=== PATIENT | male | born 1945 | race Caucasian/White ===

== ENCOUNTER → 2019-11-02 09:14 | Outpatient (CLI) | payer SELFPAY ==
--- NOTE | 2019-11-02 08:29 | PET_ITS ---
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 COMPARISON EXAMINATION: None available INDEX LESION SIZE SUV INTERPRETATION Midline nares 19.3-mm (frame 353) 3.8 Fulfills quantitative criteria for viable neoplasm NON-INDEX LESION SIZE SUV INTERPRETATION Left maxillary sinus 29.2-mm 6.8 Most consistent with activated leukocytes associated with an inflammatory process-sinusitis TECHNIQUE: Following the intravenous administration of 19.1 mCi of F-18 deoxyglucose via the left antecubital fossa, multiplanar image acquisitions of the neck, chest, abdomen and pelvis to level of mid thigh, obtained at one hour post radiopharmaceutical administration contemporaneously interpreted with the current CT of the neck, chest, abdomen and pelvis, to level of mid thigh, dated 11/02/2019 via coregistration reveals: BLOOD GLUCOSE LEVEL:?? 88 mg/dl?HEIGHT:?68 inches?WEIGHT: 239 lbs. FINDINGS: 1. There is an increase in radiopharmaceutical concentration identified in the midline distal nares. The calculated maximal standard uptake value is 3.8. The maximal axial diameter of the corresponding metabolic abnormality on review of CT of the head dated 11/02/2019 is 19.3-mm (transverse). 2. Asymmetric increased radiopharmaceutical concentration is observed in the left maxillary sinus corresponding to asymmetric opacification on review of CT of the head and neck dated 11/02/2019. The calculated maximal standard uptake value is 6.8. The maximal axial diameter of the corresponding metabolic, morphologic abnormality on review of CT of the neck dated 11/02/2019 is 29.2-mm (transverse). 3. Normal physiologic distribution of the radiopharmaceutical is apparent in the hepatic (3.0) and splenic parenchyma, both renal units, bladder and visualized intestinal tract. The visualized portion of the cerebral cortex, cerebellar hemispheres and basal ganglia demonstrates uniform and preserved glucose metabolism. Prominent radiopharmaceutical concentration is observed in the left ventricular myocardium commensurate with the [place]. (Anya and Tameka, Journal of [employer] Technology 31:3, 2003). There is an asymmetric increase in tracer concentration observed in the bilateral pharyngeal mucosal space (R>L). The calculated maximal standard uptake value is 5.4. There is no discernible asymmetric increase in soft tissue thickening on review of CT of the neck dated 11/02/2019 in the analogous location. Pertinent CT findings are as follows: CHEST: A right hemithorax pleural effusion is non-glucose avid. There is atherosclerotic calcification defined in the thoracic aorta without evidence of dilatation-aneurysm formation. Subtle coronary arterial calcification is observed. Bilateral axillary and scattered mediastinal soft tissue is ametabolic. There are no parenchymal densities-nodules defined in the right and left hemithorax manifesting quantitatively significant increased FDG uptake. ABDOMEN AND PELVIS: There is atherosclerotic calcification defined in the abdominal aorta without evidence of dilatation-aneurysm formation. Pelvic arterial calcification is observed. Colonic diverticulosis is noted without evidence of diverticulitis. A small fat containing left inguinal hernia is noted. Right and left inguinal subcentimeter soft tissue densities are ametabolic. SKELETAL: Degenerative changes are noted in the cervical, thoracic and lumbar spine. A left hip prosthesis is demonstrated producing beam hardening artifact in the lower pelvic CT acquisition. PET/PET/CT Tumor Base -Thigh Init IMPRESSION: 1. ABNORMAL EXAMINATION INDICATIVE OF MALIGNANT VIABLE NEOPLASM. 2. 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 3. Asymmetric increased tracer uptake noted in the left maxillary sinus is most consistent with activated leukocytes associated with an inflammatory process. If soft tissue mass formation-neoplasia is a diagnostic consideration, correlation with histopathologic investigation is recommended. 4. 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 If soft tissue mass formation is suspected, direct visualization is recommended. Electronic Signature Jose Singh D.O. Electronically Signed: Jose Singh DO at 21:26 EDT Tel , Service support ,
== END ==
PROVIDERS: PCP Family Medicine
DX: C30.0 Malignant neoplasm of nasal cavity (principal); J32.0 Chronic maxillary sinusitis; J33.0 Polyp of nasal cavity; J32.1 Chronic frontal sinusitis; J32.2 Chronic ethmoidal sinusitis; J32.3 Chronic sphenoidal sinusitis; J34.3 Hypertrophy of nasal turbinates
CPT/HCPCS: 78815; A9552